=== PATIENT | female | born 1960 | race Two or more races ===

== ENCOUNTER 2024-01-10 22:24 | Emergency (ER) | payer OTHER ==
[~2024-01-10] VITALS: Ht 157.5 cm; Wt 74.8 kg
[2024-01-10] MEDS ORDERED: GLUMETZA500 MG PO (22:34)
[2024-01-10] MEDS ORDERED: SYNTHROID50 MCG PO (22:34)
[2024-01-10] MEDS ORDERED: DEPAKOTE SPRIN125 MG PO (22:35)
[2024-01-10] MEDS ORDERED: LOREEV XR1 MG PO (22:35)
[2024-01-11] MEDS ORDERED: IPRATROPIUM BROMIDE 0.5 MG/2.5 ML AMPUL.NEB IH SCH (01:30)
[2024-01-11] MEDS ORDERED: ALBUTEROL SULFATE 3 ML/2.5 MG AMPUL.NEB IH SCH (01:30)
[2024-01-11] MEDS ORDERED: CALCIUM GLUCONATE 100 MG/ML VIAL IV STA (02:01)
[2024-01-11 02:18] LABS: ABG PH 7.446 (7.35-7.45); ABG pCO2 42.1 mmHg (35-45); BASE EXCESS 3.8 mmol/l; BICARBONATE 28.3 mmol/l (23-25); SaO2 97.2 %; Tco2 29.6 mmol/l
[2024-01-11 02:19] LABS: allen test SATISFACTORY; o2 24 %; puncture site RADIAL RIGHT
[2024-01-11 02:20] LABS: HEMOGLOBIN 11.5 g/dL (12.0-15.00); MEAN CELL VOLUME 90.7 fL (80.00-100.00); MEAN CORPUSCULAR HEMOGLOBIN 29.6 pg (27.00-32.0); MEAN CORPUSCULAR HGB CONC 32.7 g/dl (32.0-36.0); PLATELET COUNT 155 K/uL (150-450); RED BLOOD COUNT 3.87 M/uL (4.00-6.00); RED CELL DISTRIBUTION WIDTH 17.3 % (11.5-14.5)
[2024-01-11 02:35] LABS: INR 1.04; PARTIAL THROMBOPLASTIN TIME 26.2 SECONDS (22.0-34.0); PROTHROMBIN TIME 10.9 SECONDS (9.0-11.5)
[2024-01-11 02:40] LABS: BILIRUBIN TOTAL 0.55 mg/dL (0.3-1.2); CALCIUM 10.7 mg/dL (8.5-10.1); CREATININE SERUM 3.1 mg/dL (0.55-1.02); GFR 15.27; GLOBULINA 4.2 G/DL (2.4-3.5); POTASSIUM 3.95 mEq/L (3.5-5.1); TOTAL PROTEIN 7.2 gm/dL (6.4-8.2)
[2024-01-11] MEDS ORDERED: ACETAMINOPHEN 325 MG SUPP.RECT RECTAL ONE (03:45)
[2024-01-11 07:57] LABS: PH,URINE 8.5 (5.0-8.0); URINE APPEARANCE Clear; URINE BACTERIA 105.8 uL (0.0-1933); URINE BILIRRUBIN Negative (NEGATIVE); URINE BLOOD Negative; URINE COLOR Dark Yellow; URINE EPITHELIAL CELLS 32.4 uL (0.0-38.8); URINE GLUCOSE Negative (NEGATIVE); URINE LEUKOCYTE Trace; URINE NITRATE Negative; URINE RBC 107.9 uL (0.0-20.8); URINE WBC 14.8 uL (0.0-23.2)
[2024-01-11 08:50] LABS: URINE PROTEIN 300 (NEGATIVE)
[2024-01-11 09:05] LABS: URINE YEAST NEGATIVE /hpf
== END 2024-01-11 10:30 | disposition home or self-care (01) ==
LOC: ER 22:24
DX: N18.6 End stage renal disease (principal); Z43.0 Encounter for attention to tracheostomy; R53.81 Other malaise; Z20.822 Contact with and (suspected) exposure to COVID-19; E11.9 Type 2 diabetes mellitus without complications; Z79.84 Long term (current) use of oral hypoglycemic drugs; Z88.0 Allergy status to penicillin